=== PATIENT | male | born 1995 | race Caucasian/White ===

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

== ENCOUNTER 2017-10-25 07:23 | Emergency (ER) | payer BC ==
[~2017-10-25] VITALS: Ht 177.8 cm; Wt 77.9 kg
[~2017-10-25 07:23] MED LIST: NAPROSYN500 MG PO
[2017-10-25] MEDS ORDERED: MOTRIN800 MG PO (08:40)
[2017-10-25] MEDS ORDERED: POLYSPORIN30 GM TP (08:40)
[2017-10-25] MEDS ORDERED: ULTRAM50 MG PO (08:49)
[2017-10-25 09:19] VITALS: BP 132/90
== END 2017-10-25 09:20 | disposition home or self-care (01) ==
LOC: EME 07:23
PROC: 3E0234Z Introduction of Serum, Toxoid and Vaccine into Muscle, Percutaneous Approach (ICD-10-PCS; principal; 2017-10-25)
DX: S43.402A Unspecified sprain of left shoulder joint, initial encounter (principal); S30.811A Abrasion of abdominal wall, initial encounter; S50.812A Abrasion of left forearm, initial encounter; S50.811A Abrasion of right forearm, initial encounter; S70.212A Abrasion, left hip, initial encounter; S70.211A Abrasion, right hip, initial encounter; S80.212A Abrasion, left knee, initial encounter; S90.512A Abrasion, left ankle, initial encounter; M25.562 Pain in left knee; V86.56XA Driver of dirt bike or motor/cross bike injured in nontraffic accident, initial encounter; Z23 Encounter for immunization; F17.200 Nicotine dependence, unspecified, uncomplicated
CPT/HCPCS: 73030; 73564; 73610; 99281; 99284